=== PATIENT | female | born 1970 | race Caucasian/White ===

== ENCOUNTER → 2016-09-30 | Outpatient (REF) | payer OTHER | LOC: M LAB REF 12:19 | PROVIDERS: ATTEND Surgery | DX: L72.12 Trichodermal cyst (principal) ==

== ENCOUNTER → 2017-05-06 | Outpatient (REF) | payer OTHER ==
[2017-05-06 19:19] LABS: VITAMIN B12 LEVEL 634 PG/ML (247-911)
== END ==
LOC: M LAB REF 16:33
PROVIDERS: ATTEND Internal Medicine
DX: N92.4 Excessive bleeding in the premenopausal period (principal)

== ENCOUNTER → 2017-06-23 | Outpatient (REF) | payer OTHER ==
[2017-06-23 14:57] LABS: INFLUENZA A AMPLIFICATION POSITIVE (NEGATIVE); INFLUENZA B AMPLIFICATION NEGATIVE (NEGATIVE)
== END ==
LOC: M LAB REF 13:25
DX: R05 Cough (principal); R51 Headache

== ENCOUNTER → 2018-01-23 | Outpatient (REF) | payer OTHER ==
[2018-01-23 19:51] LABS: BASO # 0.1 10^3/uL (0.0-0.2); BASO % 1.4 % (0.0-1.0); EOS # 0.3 10^3/uL (0.0-0.50); EOS % 4.3 % (0.0-3.0); HEMATOCRIT 41.8 % (36.0-47.0); HEMOGLOBIN 13.6 g/dl (12.0-15.5); IMMATURE GRANULOCYTE % 0.3 % (0-3.0); LYMPH # 1.4 10^3/uL (1.5-4.5); LYMPH % 20.8 % (24.0-44.0); MEAN CORPUSCULAR HGB CONC 32.5 g/dl (32.0-36.5); MEAN CORPUSCULAR VOLUME 89.1 fl (80.0-96.0); MONO # 0.4 10^3/uL (0.0-0.8); NEUTROPHILS # 4.4 10^3/uL (1.8-7.7); NEUTROPHILS % 67.2 % (36.0-66.0); PLATELET COUNT, AUTOMATED 248 10^3/uL (150-450); RED BLOOD COUNT 4.69 10^6/uL (4.00-5.40); RED CELL DISTRIBUTION WIDTH 14.6 % (11.5-14.5); WHITE BLOOD COUNT 6.5 10^3/uL (4.0-10.0)
[2018-01-23 20:21] LABS: HEPATITIS B SURFACE ANTIBODY NEGATIVE (POSITIVE)
[2018-01-23 20:27] LABS: TOTAL 25(OH) VITAMIN D 73.1 NG/ML (30.0-100.0)
[2018-01-23 21:15] LABS: ERYTHROCYTE SEDIMENTATION RATE 5 mm/hr (0-20)
[2018-01-23 23:51] LABS: ALBUMIN 4.3 GM/DL (3.2-5.2); ALKALINE PHOSPHATASE 63 U/L (45-117); ALT/SGPT 29 U/L (12-78); AST/SGOT 29 U/L (7-37); BILIRUBIN,TOTAL 0.5 MG/DL (0.2-1.0); BLOOD UREA NITROGEN 15 MG/DL (7-18); C REACTIVE PROTEIN QUANTITATIV < 0.30 MG/DL (0.00-0.30); CALCIUM LEVEL 9.3 MG/DL (8.5-10.1); CARBON DIOXIDE LEVEL 28 MEQ/L (21-32); CHLORIDE LEVEL 106 MEQ/L (98-107); GLOMERULAR FILTRATION RATE > 60.0 (>58); GLUCOSE, FASTING 87 MG/DL (70-100); POTASSIUM SERUM 4.5 MEQ/L (3.5-5.1); RHEUMATOID FACTOR QUANT < 10.0 IU/ML (<15.0); SODIUM LEVEL 140 MEQ/L (136-145); TOTAL PROTEIN 7.4 GM/DL (6.4-8.2)
[2018-01-24 00:16] LABS: ANION GAP 6 MEQ/L (8-16)
[2018-01-24 00:17] LABS: ALBUMIN/GLOBULIN RATIO 1.39 (1.00-1.93)
[2018-01-24 13:00] LABS: HEPATITIS B SURFACE ANTIGEN NEGATIVE (NEGATIVE)
[2018-01-24 14:27] LABS: HEPATITIS C VIRUS ABY INDEX 0.1 INDEX (<0.8)
[2018-01-26 00:08] LABS: CYCLIC CITRULLINATED PEPTIDE 93 units (0-19)
[2018-01-26 00:08] LABS: ANA (HEP2) Negative (.); HEPATITIS B CORE ANTIBODY IGG Negative (Negative); QUANTIFERON GOLD TB Negative (Negative); RNP ANTIBODY < 0.2 AI (0.0-0.9); SMITHS ANTIBODY < 0.2 AI (0.0-0.9); TB Test (QFT) Antigen 0.05 IU/mL (.); TB Test (QFT) Antigen Minus Ni 0.01 IU/mL (.); TB Test (QFT) Mitogen 6.94 IU/mL (.); TB Test (QFT) Nil 0.04 IU/mL (.)
== END ==
LOC: M SFHCLERA 15:43
DX: M06.9 Rheumatoid arthritis, unspecified (principal)

== ENCOUNTER → 2018-01-23 | Outpatient (CLI) | payer OTHER | LOC: M LRY 16:15 | DX: M06.9 Rheumatoid arthritis, unspecified (principal) | CPT/HCPCS: 73110 ==

== ENCOUNTER → 2018-12-07 | Outpatient (REF) | payer OTHER ==
[2018-12-07 12:50] LABS: C REACTIVE PROTEIN QUANTITATIV < 0.30 MG/DL (0.00-0.30); RHEUMATOID FACTOR QUANT < 10.0 IU/ML (<15.0)
== END ==
LOC: M LABDRAW1 08:33
PROVIDERS: ATTEND Internal Medicine Rheumatology
DX: M06.9 Rheumatoid arthritis, unspecified (principal)

== ENCOUNTER 2019-03-12 11:05 | Emergency (ER) | payer OTHER ==
[~2019-03-12] VITALS: Ht 160 cm; Wt 63.6 kg
[2019-03-12] MEDS ORDERED: XYZASOL2 PO (12:04)
[2019-03-12] MEDS ORDERED: LEVO137T2 PO (12:04)
[2019-03-12] MEDS ORDERED: [UNRECOGNIZED DRUG - OTHER] PO (12:04)
[2019-03-12] MEDS ORDERED: HYDR200T3 PO (12:04)
[2019-03-12] MEDS ORDERED: MONT10TA2 PO (12:04)
[2019-03-12] MEDS ORDERED: KETOROLAC 30 MG/ML VIAL (J1885) IV ONE (12:45)
[2019-03-12] MEDS ORDERED: NS 1,000 ML IV ONE (12:45)
[2019-03-12 13:12] LABS: BASO # 0.1 10^3/uL (0.0-0.2); BASO % 0.9 % (0.0-1.0); EOS # 0.3 10^3/uL (0.0-0.5); EOS % 2.2 % (0.0-3.0); HEMATOCRIT 39.4 % (36.0-47.0); HEMOGLOBIN 13.2 g/dl (12.0-15.5); LYMPH # 1.4 10^3/uL (1.5-5.0); LYMPH % 12.4 % (24.0-44.0); MEAN CORPUSCULAR HEMOGLOBIN 29.9 pg (27.0-33.0); MEAN CORPUSCULAR HGB CONC 33.5 g/dl (32.0-36.5); MEAN CORPUSCULAR VOLUME 89.1 fl (80.0-96.0); MONO # 0.5 10^3/uL (0.0-0.8); MONO % 4.8 % (0.0-5.0); NEUTROPHILS # 8.8 10^3/uL (1.5-8.5); NEUTROPHILS % 79.3 % (36.0-66.0); PLATELET COUNT, AUTOMATED 225 10^3/uL (150-450); RED BLOOD COUNT 4.42 10^6/uL (4.00-5.40); WHITE BLOOD COUNT 11.1 10^3/uL (4.0-10.0)
[2019-03-12 13:44] LABS: BLOOD UREA NITROGEN 15 MG/DL (7-18); CALCIUM LEVEL 9.5 MG/DL (8.5-10.1); CARBON DIOXIDE LEVEL 27 MEQ/L (21-32); CHLORIDE LEVEL 109 MEQ/L (98-107); CREATININE FOR GFR 0.97 MG/DL (0.55-1.30); GLOMERULAR FILTRATION RATE > 60.0 (>58); GLUCOSE, FASTING 80 MG/DL (70-100); POTASSIUM SERUM 4.6 MEQ/L (3.5-5.1); SODIUM LEVEL 140 MEQ/L (136-145)
[2019-03-12 13:45] LABS: ALBUMIN 4.1 GM/DL (3.2-5.2); ALT/SGPT 26 U/L (12-78); AMYLASE 110 U/L (25-115); BILIRUBIN,TOTAL 0.6 MG/DL (0.2-1.0); LIPASE 443 U/L (73-393); TOTAL PROTEIN 7.2 GM/DL (6.4-8.2)
--- NOTE | 2019-03-12 14:52 | REP ---
Clinical: Right flank pain and hematuria. Technique: Axial noncontrast images from the lung bases to the pubic symphysis with coronal and sagittal re-formations. Comparison: 07/06/2013 Findings: Stable upper pole right renal cyst again noted. Urinary tract system including bilateral kidneys/ureters and bladder otherwise unremarkable. No perinephric stranding, hydroureteronephrosis, or nephroureterolithiasis identified. Liver, spleen, pancreas, gallbladder, and bilateral adrenal glands are normal for noncontrast evaluation. The enteric system is without obstruction or acute inflammatory process although moderate fecal stasis and possible constipation is suggested. Normal appendix identified in the right lower quadrant. Pelvis demonstrates normal bladder and age-appropriate uterus/adnexa. No ascites. No free air. No obvious adenopathy. Abdominal aorta without aneurysm. Musculoskeletal structures intact. Lung bases are clear. Impression: 1. Stable right renal cyst. No further urinary tract pathology appreciated. 2. Moderate fecal stasis and constipation suggested. Electronically Signed by Ky Bess MD 03/12/2019 02:43 P
[2019-03-12 15:39] VITALS: BP 131/74
== END 2019-03-12 15:40 | disposition home or self-care (01) ==
LOC: M ED 11:05
DX: K59.00 Constipation, unspecified (principal); E86.0 Dehydration; R06.9 Unspecified abnormalities of breathing; M06.9 Rheumatoid arthritis, unspecified; Z88.1 Allergy status to other antibiotic agents; Z79.890 Hormone replacement therapy; Z79.899 Other long term (current) drug therapy
CPT/HCPCS: 74176; 80053; 81001; 82150; 83690; 84702; 85025; 96374; 99284; J1885

== ENCOUNTER → 2019-03-20 | Outpatient (REF) | payer OTHER ==
[~2019-03-20] MED LIST: HYDR200T3 PO; LEVO137T2 PO; MONT10TA2 PO; XYZASOL2 PO; [UNRECOGNIZED DRUG - OTHER] PO
== END ==
LOC: M LAB REF 08:54
PROVIDERS: ATTEND Radiology Diagnostic Radiology
DX: N60.82 Other benign mammary dysplasias of left breast (principal)

== ENCOUNTER → 2019-05-18 | Outpatient (CLI) | payer OTHER ==
[2019-05-18 17:34] LABS: FREE T4 1.26 NG/DL (0.76-1.46); THYROID STIMULATING HORMONE 1.22 uIU/ML (0.358-3.740)
[2019-05-18 17:37] LABS: PROLACTIN 4.5 NG/ML
== END ==
LOC: M PLALAB 14:26
PROVIDERS: ATTEND Advanced Practice Midwife
DX: O92.6 Galactorrhea (principal); Z3A.00 Weeks of gestation of pregnancy not specified

== ENCOUNTER → 2019-06-19 | Outpatient (REF) | payer OTHER | LOC: M LAB REF 12:58 | PROVIDERS: ATTEND Radiology Diagnostic Radiology | DX: N60.12 Diffuse cystic mastopathy of left breast (principal); N63.22 Unspecified lump in the left breast, upper inner quadrant; N63.24 Unspecified lump in the left breast, lower inner quadrant ==

== ENCOUNTER → 2019-07-19 | Outpatient (CLI) | payer OTHER ==
[~2019-07-19] MED LIST changes: +LIDOCAINE 1% MDV 20ML VIAL As Ordered ONE; -MONT10TA2 PO; +MONT10TA4 PO; +PROHANCE 279.3MG/ML 15ML VIAL (A9576) As Ordered ONE
[2019-07-19 13:05] VITALS: BP 144/93
--- NOTE | 2019-07-19 16:26 | REP ---
Digital diagnostic unilateral left breast mammography with CAD: Two views. History: Marker clip placement views. The patient is status post MR guided left breast biopsy. Comparison mammography June 19, 2019. Findings: The two previously placed medial needle biopsy marker clips are again noted unchanged. Post biopsy changes with intracavitary air are seen at the sampling site in the medial left breast anterior third. Unfortunately, the HydroMark clip inserted at the time of the MR guided biopsy is not visible. There was some bleeding just after the biopsy needle was removed and it must have been extruded. Perhaps it failed to deploy properly. In any event, it is not present. Impression: The marker clip which was deployed at the time of the biopsy is not visible mammographically. Tissue sampling changes are seen medially in the left mid breast anterior third. Electronically Signed by Feng Babin MD 07/20/2019 06:29 P
--- NOTE | 2019-07-19 18:20 | REP ---
MRI GUIDED LEFT BREAST BIOPSY The procedure was performed under the personal supervision of Dr. Babin. The patient has a history of a somewhat nodular linear branching area of enhancement in the lower inner left breast seen on a previous MRI from [facility] performed on 05/30/2019. The risks and benefits of the procedure were explained to the patient and informed consent was obtained. The left breast lesion was localized using MRI guidance. The skin was prepped and draped in a sterile fashion. 1% lidocaine was used as a local anesthetic. A 10-gauge suction assisted Mammotome needle was inserted and four core biopsy samples were obtained. A marker clip was placed at the biopsy site. The patient tolerated the procedure well and there were no immediate complications. After the appropriate amount of monitored convalescence the patient was discharged from the department. Electronically Signed by CHITRA Reilly 07/19/2019 04:47 P Electronically Signed by Feng Babin MD 07/19/2019 06:12 P
== END ==
LOC: M IRPRO 09:25
PROVIDERS: ATTEND Surgery
DX: N64.52 Nipple discharge (principal); R92.8 Other abnormal and inconclusive findings on diagnostic imaging of breast
CPT/HCPCS: 19085; 77065; 88305; A9576

== ENCOUNTER → 2019-07-24 | Outpatient (CLI) | payer OTHER ==
[~2019-07-24] MED LIST changes: -PROHANCE 279.3MG/ML 15ML VIAL (A9576) As Ordered ONE; +SODIUM BICARBONATE 8.4% INJ 50MEQ 50 ML VIAL As Ordered ONE
[2019-07-24 16:05] VITALS: BP 133/84
--- NOTE | 2019-07-24 17:06 | REP ---
Digital diagnostic unilateral left breast mammography with CAD: History: Marker clip placement views. The patient is status post HydroMARK clip placement at the recent MR guided needle biopsy site in the left breast, medial aspect. Comparison mammography is from July 19, 2019. Comparison is made with today's sonography. Findings: Breast parenchyma is heterogeneously dense. There are two previously placed needle biopsy marker clips in the posterior third of the medial left breast, unchanged. At the site of the MR guided needle biopsy sampling, just medial to the plane of the nipple, in the anterior third of the left breast, there is a HydroMARK clip in good position. There is no visible hematoma. Impression: Sonographically placed HydroMARK clip is felt to be in good position. Electronically Signed by Feng Babin MD 07/24/2019 05:44 P
--- NOTE | 2019-07-24 17:56 | REP ---
Ultrasound-guided left breast microclip placement The procedure was performed by CHITRA Gleason, under the direct supervision of Dr. Babin. The patient has a history of a MRI guided biopsy dated 07/19/2019, in which the microclip did not deploy. The risks and benefits of the procedure were explained to the patient and informed consent was obtained both verbally and written. Directly prior to the start of the procedure, a formal timeout was completed in the procedure room. The left breast hematoma from the previous MRI guided biopsy was localized using ultrasound guidance. The skin was prepped and draped in a sterile fashion. 6 mL of buffered lidocaine was used as a local anesthetic. Using ultrasound guidance a HydroMARK marker clip was placed superficial to the hematoma from the previous MRI guided biopsy. The patient tolerated the procedure well and there were no immediate complications. After the appropriate monitored convalescence the patient was discharged from the department. Reviewed by CHITRA Carlisle 07/24/2019 04:35 P Electronically Signed by Feng Babin MD 07/24/2019 05:45 P
== END ==
LOC: M IRPRO 14:49
PROVIDERS: ATTEND Surgery
DX: D36.9 Benign neoplasm, unspecified site (principal)

== ENCOUNTER 2019-08-01 05:48 | Day surgery (SDC) | payer OTHER ==
[~2019-08-01] VITALS: Ht 160 cm; Wt 66.2 kg
[~2019-08-01 05:48] MED LIST changes: -LIDOCAINE 1% MDV 20ML VIAL As Ordered ONE; -SODIUM BICARBONATE 8.4% INJ 50MEQ 50 ML VIAL As Ordered ONE
[2019-08-01] MEDS ORDERED: ceFAZolin SOD 2 GM in IV 1 EA IV ONE (06:00)
[2019-08-01] MEDS ORDERED: HEPARIN SOD (PORCINE) 5000 UNITS/ML VIAL (J1644 PER 1000UNITS) SQ ONE (06:00)
[2019-08-01] MEDS ORDERED: LIDOCAINE 1% SDV INJ 30 ML VIAL As Ordered ONE (06:50)
[2019-08-01] MEDS ORDERED: BUPIVACAINE HCL 0.25% 30 ML VIAL As Ordered ONE (06:50)
[2019-08-01] MEDS ORDERED: LR 1,000 ML IV ONE (07:15)
[2019-08-01] MEDS ORDERED: MIDAZOLAM INJ 2 MG/2 ML VIAL (J2250) As Ordered ONE (07:52)
[2019-08-01] MEDS ORDERED: dexameTHASONE 4 MG/ML 1ML VIAL (J1100) As Ordered ONE (07:52)
[2019-08-01] MEDS ORDERED: fentaNYL 100 MCG/2 ML INJECTION (J3010) As Ordered ONE (07:52)
[2019-08-01] MEDS ORDERED: propofoL 200 MG/20 ML VIAL As Ordered ONE (07:52)
[2019-08-01] MEDS ORDERED: LIDOCAINE 2% INJ 100 MG/5 ML SDV (FOR ANES.) As Ordered ONE (07:52)
[2019-08-01] MEDS ORDERED: PHENYLephrine HCL 500 MCG/5 ML (100MCG/ML) SYRINGE (J2370) As Ordered ONE (08:00)
[2019-08-01] MEDS ORDERED: ACETAMINOPHEN 1000MG 100ML IV BTL (OFIRMEV) (J0131 PER 10MG) As Ordered ONE (08:34)
[2019-08-01] MEDS ORDERED: ONDANSETRON 4MG/2ML VIAL (J2405) As Ordered ONE (08:37)
[2019-08-01] MEDS ORDERED: KETOROLAC 60 MG/2 ML VIAL (J1885) As Ordered ONE (08:37)
[2019-08-01] MEDS ORDERED: ULTR50TA8 PO (09:56)
[2019-08-01] MEDS ORDERED: LR 1,000 ML IV SCH (10:00)
[2019-08-01] MEDS ORDERED: ONDANSETRON 4MG/2ML VIAL (J2405) IV PRN (10:00)
[2019-08-01] MEDS ORDERED: fentaNYL 100 MCG/2 ML INJECTION (J3010) IV PRN (10:00)
[2019-08-01] MEDS ORDERED: HYDROMORPHONE HCL 0.5 MG/ 0.5 ML SYRINGE (J1170 PER 1) IV PRN (10:00)
[2019-08-01] MEDS ORDERED: oxyCODONE 5MG TAB PO PRN (10:00)
--- NOTE | 2019-08-01 10:33 | REP ---
FOCUSED LEFT BREAST SONOGRAPHY: HISTORY: Sonographic guidance. Wire localization. FINDINGS: Sonographic guidance is provided to Dr. Lee who performed sonographic needle wire localization procedure. Electronically Signed by Feng Babin MD 08/01/2019 12:16 P
[2019-08-01 11:25] VITALS: BP 122/77
--- NOTE | 2019-08-01 15:15 | REP ---
SPECIMEN RADIOGRAPH: Specimen radiograph performed following needle localization and excisional biopsy/lumpectomy of a left retroareolar abnormality, which was biopsied using MRI guidance 07/19/2019. A marking clip is seen in a small piece of tissue. There is a large piece of tissue containing the localizing wire. Another smaller piece of tissue is also seen adjacent to the larger specimen. Electronically Signed by Matthew Saldaña MD 08/01/2019 03:20 P
--- NOTE | 2019-08-02 11:31 | ROOPDOC ---
[facility] Report Of Operation Report of Operation DATE OF PROCEDURE: 08/01/19 PREPROCEDURE DIAGNOSES: Left intraductal papilloma and left nipple discharge POSTPROCEDURE DIAGNOSES: Left intraductal papilloma and left nipple discharge PROCEDURE: Left breast excisional biopsy SURGEON: Derek Orourke COCKTAIL SERVER: ANESTHESIA: General ESTIMATED BLOOD LOSS: Approximately 5 mL. COMPLICATIONS: None. REMARKS: Wire is seen centrally in the specimen. Hydromark clip was previously removed out of specimen and placed next to it on the grid. DESCRIPTION OF PROCEDURE: INDICATIONS: Ms. Graham is a 49-year-old woman who presented to the clinic with persistent left nipple discharge. She was evaluated with MRI and found to have suspicious lesion in the retroareolar region. She and her went MRI guided biopsy which returned as intraductal papilloma. Unfortunately marking clip did not deploy during MRI guided biopsy. A new clip had to be placed with the ultrasound guidan ce aiming at the biopsy site hematoma. Patient was explained that intraductal papilloma is a benign pathology however occasionally it can be associated with carcinoma. She opted for excisional biopsy of the left breast. She was medically cleared for surgery by her primary care doctor. Risks and possible complications of surgical procedure including bleeding, infection and injury to surrounding structures were explained to the patient and she wished to proceed. Consent was signed. My initials were placed on the operative site. Subcutaneous injection of 5000 units of heparin was done in Preop. DETAILS: Patient was taken to the operating room and placed on the operating room table. A sign in was called stating patients name, date of and the procedure to be done. Preoperative antibiotics were infused. Smooth induction of general anesthesia was done. Patients hands were extended on arm rests. Care was taken not to over extend the arms. Procedure was started with left breast intraop wire localization. Appropriate time out was done and patients name, date of , and the procedure to be done were confirmed. Left breast was cleaned by me. Intraoperative ultrasound was used again to confirm location of the Hydromark clip and the hematoma. Location of both was marked on the skin as well. 21 G Kopans Breast Lesion Localization Needle was used to place 25 cm wire through the lesion. The wire was placed through the hematoma and next to the clip. The end of the wire was passed a centimeter deep. The images were captured confirming adequate placement of the localizing wire. Salmon Gillnet Vessel Operator assisted with the wire placement. Next, patients left breast was prepped and draped in the usual fashion. Care was taken not to displace the wire. Appropriate time out was done again prior second part of the procedure. Patients name, date of , and the procedure to be done were confirmed. Next, local anesthetic using 1% lidocaine and 0.25 % Marcaine 50/50 mix was injected at the site of planned periareolar incision. The incision was made with the scalpel. Subcutaneous skin flaps were raised and the guide wire was carefully pulled into the wound. Dissection was carries along the wire until the previously marked on the skin area of target lesion location was encountered. At this point, wider excision of the tissue surrounding the wire was done. The Hydromark clip was identified in the tissue with intraoperative hockey stick ultrasound probe. Since it was superficially placed, Hydromark clip was noted during dissection. The gel cylinder containing clip was removed to prevent losing it in tissues during manipulation. Silk stitch was placed at the site where clip was. The end of the wire was identified with palpation. The excisional biopsy specimen was carefully removed from the breast keeping its proper orientation and moved to the back table where margins were marked with the surgical inking kit following the standard colors recommendations. Specimen was then placed on the grid and placed in [employer] Specimen Imaging System. The image revealed the wire centrally in the specimen. Hydromark was previously removed out of the specimen and placed next to it on the grid. The specimen was labeled with patients name and left excisional biopsy and sent to pathology. Next, wound was irrigated thoroughly and adequate hemostasis was assured. Additional local anesthetic was injected into surrounding tissues. space was approximated with 3-0 Vicryl. The dermis was closed with 3-0 Monocryl and skin was closed with 4-0 Monocryl. Surgical glue was placed over the incision. Patient emerged from the anesthesia without any problems. Fluffs were placed over the operative site and patients chest was wrapped snuggly in the JENNIFER wrap. Sponge and instrument counts were done and were correct. Patient tolerated procedure well and was taken to recovery unit in stable condition. DEREK OROURKE DO Aug 01, 2019 21:40
== END 2019-08-01 11:27 | disposition home or self-care (01) ==
LOC: M SDC 05:48
PROVIDERS: ATTEND Surgery
DX: D24.2 Benign neoplasm of left breast (principal); N64.52 Nipple discharge; I49.3 Ventricular premature depolarization; E03.9 Hypothyroidism, unspecified; M06.9 Rheumatoid arthritis, unspecified; J30.89 Other allergic rhinitis; Z87.891 Personal history of nicotine dependence; Z88.1 Allergy status to other antibiotic agents; Z79.899 Other long term (current) drug therapy
CPT/HCPCS: 19101; 36415; 76098; 76942; 81025; 86850; 86900; 86901; 88305; J0131; J0690; J1100; J1644; J1885; J2250; J2370; J2405; J3010

== ENCOUNTER → 2020-03-03 | Outpatient (CLI) | payer OTHER ==
[~2020-03-03] MED LIST changes: +ULTR50TA8 PO
--- NOTE | 2020-03-03 13:39 | REPMRS ---
Patient History The patient states she had a clinical breast exam in May 2019. Patient is postmenopausal. Family history of breast cancer at age 43, uterine cancer at age 60, and breast cancer at age 68 in mother. Benign radio exam breast specimen of the left breast, August 01, 2019. MRI guided breast biopsy of the left breast, July 19, 2019. 3D TOMOSYNTHESIS WAS PERFORMED. [facility] lifetime risk for breast cancer is 18.8%. CLAIRE Loza Digital Woman Screen Mammo: March 03, 2020 - Exam #: [id number] Bilateral CC and MLO view(s) were taken. Technologist: Luz Bueno, Technologist Prior study comparison: July 24, 2019, left breast digital mammo diagnostic unilateral, performed at [facility]. July 19, 2019, left breast digital mammo diagnostic unilateral, performed at [facility]. FINDINGS: The breast tissue is extremely dense which could obscure a lesion on mammography. There has been no change in the appearance of the mammogram from the prior studies. There is a moderate amount of residual fibroglandular tissue which is fairly symmetric. There is no interval development of dominant mass, areas of architectural distortion, or clustered microcalcification typical of malignancy. Assessment: BI-RADS/ACR category 1 mammogram. Negative Mammogram. Recommendation Routine screening mammogram in 1 year (for women over age 40). This mammogram was interpreted with the aid of an FDA-approved computer-aided dectection system. Electronically Signed By: Matthew Saldaña MD 03/03/20 [id number]
== END ==
LOC: M WHC 12:41
PROVIDERS: ATTEND Surgery
DX: Z12.31 Encounter for screening mammogram for malignant neoplasm of breast (principal); Z80.3 Family history of malignant neoplasm of breast; Z86.018 Personal history of other benign neoplasm

== ENCOUNTER → 2020-03-17 | Outpatient (CLI) | payer OTHER ==
--- NOTE | 2020-03-17 16:35 | REP ---
INDICATION: R92.2 DENSE BREAST/Z91.89 HIGH RISK FOR BREAST CA. COMPARISON: Ultrasound 03/01/2019 [facility] radiology imaging. The TECHNIQUE: Real-time sonographic evaluation of bilateral breasts performed. FINDINGS: No discrete cystic or solid nodule is seen in the right breast. To morphologically normal appearing lymph nodes are seen in the right axilla measuring 9 x 6 x 6 mm and 13 x 8 x 6 mm. In the left breast at 3 o'clock position, approximately 4 cm from the nipple, is an oval hypoechoic nodular structure measuring 6 x 3 x 3 mm. In the left axilla there appear to be 2 morphologically normal lymph nodes which are not enlarged measuring 9 x 5 x 3 mm and 6 x 5 x 3 mm. IMPRESSION: BIRADS/ACR category 4 suspicious. In the left breast at 3 o'clock approximately 4 cm from the nipple is an oval hypoechoic nodular structure 6 x 3 x 3 mm. Recommend ultrasound-guided biopsy. RECOMMENDATION: Recommend ultrasound-guided biopsy of nodular structure 3 o'clock left breast. <Electronically signed by Matthew Saldaña > 03/17/20 [id number]
== END ==
LOC: M WHC 12:22
PROVIDERS: ATTEND Surgery
DX: R92.2 Inconclusive mammogram (principal); Z91.89 Other specified personal risk factors, not elsewhere classified

== ENCOUNTER → 2020-05-01 | Outpatient (CLI) | payer SELFPAY ==
[~2020-05-01] MED LIST changes: -MONT10TA4 PO; +MONT5TAB2 PO
== END ==
LOC: M LABSMTC 09:55
PROVIDERS: ATTEND Pediatrics
DX: Z20.828 Contact with and (suspected) exposure to other viral communicable diseases (principal)

== ENCOUNTER → 2020-08-06 | Outpatient (REF) | payer OTHER ==
[~2020-08-06] MED LIST changes: +MONT10TA10 PO; -MONT5TAB2 PO
[2020-08-06 13:10] LABS: C REACTIVE PROTEIN QUANTITATIV < 0.30 MG/DL (0.00-0.30); RHEUMATOID FACTOR QUANT 11.4 IU/ML (<15.0)
== END ==
LOC: M LAB REF 12:19
PROVIDERS: ATTEND Internal Medicine
DX: M06.9 Rheumatoid arthritis, unspecified (principal)

== ENCOUNTER → 2020-09-04 | Outpatient (REF) | payer OTHER ==
[2020-09-04 18:36] LABS: C REACTIVE PROTEIN QUANTITATIV < 0.30 MG/DL (0.00-0.30); HEPATITIS B SURFACE ANTIGEN NEGATIVE (NEGATIVE); IMMUNOGLOBULIN G 900 MG/DL (681-1648); IMMUNOGLOBULIN M 96.3 MG/DL (40-230); IRON (FE) 107 UG/DL (50-170); MAGNESIUM LEVEL 2.1 MG/DL (1.8-2.4); TOTAL 25(OH) VITAMIN D 34.3 NG/ML (30.0-100.0); TOTAL PROTEIN 7.9 GM/DL (6.4-8.2); VITAMIN B12 LEVEL 1409 PG/ML (247-911)
[2020-09-04 18:37] LABS: HEPATITIS B SURFACE ANTIBODY NEGATIVE (POSITIVE)
[2020-09-04 18:42] LABS: HEPATITIS C VIRUS ABY INDEX 3.7 INDEX (<0.8)
== END ==
LOC: M SFHCRHEU 15:06
PROVIDERS: ATTEND Internal Medicine
DX: M05.9 Rheumatoid arthritis with rheumatoid factor, unspecified (principal); R53.82 Chronic fatigue, unspecified; Z79.899 Other long term (current) drug therapy; Z11.59 Encounter for screening for other viral diseases
CPT/HCPCS: 82306; 82607; 82784; 82955; 83540; 83735; 84165; 85652; 86140; 86704; 86706; 86803; 87340; 87521; G0480

== ENCOUNTER → 2020-09-10 | Outpatient (CLI) | payer OTHER ==
--- NOTE | 2020-09-10 13:44 | REP ---
INDICATION: RHEUMATOID ARTHRITIS COMPARISON: 02/23/2019. TECHNIQUE: Four views bilateral wrists. FINDINGS: There is no evidence of acute fracture, dislocation, or intrinsic bone disease.Joint spaces are normal. IMPRESSION: Negative bilateral wrist series. <Electronically signed by Matthew Saldaña > 09/10/20 [id number]
--- NOTE | 2020-09-10 13:48 | REP ---
INDICATION: RHEUMATOID ARTHRITIS. COMPARISON: 02/23/2019 TECHNIQUE: Four views of each hand FINDINGS: Right hand: Once again, there is somewhat asymmetric intra digital joint space narrowing slightly increased from the prior exam. Tiny marginal osteophytes are again seen involving the DIP joints with larger marginal osteophytes involving the PIP joints status quo. Mild periarticular osteopenia may be developing. There are no barry marginal erosions. There is no acute fracture, dislocation, or subluxation. Left hand: Asymmetric intra digital joint space narrowing is again noted and has worsened somewhat compared to the prior exam. There has been no significant interim development of marginal osteophytosis. There are no marginal erosions. Mild periarticular osteopenia may be developing. There is no acute fracture, dislocation, or subluxation. IMPRESSION: Chronic changes as described above. <Electronically signed by Jaswinder Garvey > 09/10/20 [id number]
--- NOTE | 2020-09-10 13:52 | REP ---
INDICATION: RHEUMATOID ARTHRITIS. COMPARISON: Only the right ankle of 12/07/2018 FINDINGS: No acute fracture or destructive osseous lesion. The mortise is intact. IMPRESSION: Within normal limits bilateral <Electronically signed by Jaswinder Garvey > 09/10/20 [id number]
--- NOTE | 2020-09-10 14:21 | REP ---
INDICATION: RHEUMATOID ARTHRITIS. COMPARISON: None. TECHNIQUE: Four views of each foot FINDINGS: The joint spaces are symmetric and relatively well maintained. There is no evidence of acute fracture or destructive osseous lesion. There are no marginal erosions. There is no prominent marginal osteophytosis. There is no barry periarticular osteopenia. IMPRESSION: Within normal limits bilateral <Electronically signed by Jaswinder Garvey > 09/10/20 [id number]
== END ==
LOC: M WUC 13:01
PROVIDERS: ATTEND Internal Medicine
DX: M05.9 Rheumatoid arthritis with rheumatoid factor, unspecified (principal)

== ENCOUNTER → 2020-10-09 | Outpatient (CLI) | payer OTHER ==
[~2020-10-09] MED LIST changes: +PROHANCE 279.3MG/ML 15ML VIAL As Ordered ONE
--- NOTE | 2020-10-10 08:08 | REP ---
INDICATION: FAM HX OF BREAST CA. COMPARISON: Comparison mammography March 03, 2020. Comparison MRI study 30 May 2019. Patient is status post excisional biopsy left breast. TECHNIQUE: Three Mercedes MRI imaging was performed with a dedicated breast coil. Axial, coronal, and sagittal T1 and T2 weighted scans were obtained with and without fat saturation in the usual fashion. The study includes dynamically acquired post gadolinium-enhanced imaging with image subtraction. Maximum intensity projection and multi planar reformation imaging is included as well. This study is interpreted with the aid of AccuDraft, an FDA approved computer aided detection (CAD) software program, on a dedicated breast MRI workstation. The gadolinium enhancement dose is 12 mL of intravenous ProHance. FINDINGS: There is a mild to moderate amount of fibroglandular tissue bilaterally corresponding with the mammographic pattern. There is mild background parenchymal enhancement. There is no evidence of axillary lymphadenopathy or significant breast cystic change. High-resolution pre and post-contrast T1 and T2 weighted scans show no suspicious morphologic abnormality in either breast. Dynamically acquired sequential postcontrast images show no suspicious area of enhancement and washout kinetics in either breast to suggest malignancy. Subtraction images show no additional abnormality. There are multiple micrometallic artifacts and some postoperative scarring in the medial aspect of the left breast from previous biopsy and previous marker clip placement. The previously noted area of ductal pattern enhancement is no longer apparent consistent with resection. No suspicious abnormality. IMPRESSION: BI-RADS category 2 benign bilateral breast MRI findings. <Electronically signed by Jacky Babin > 10/10/20 [id number]
== END ==
LOC: M RAD 14:58
PROVIDERS: ATTEND Internal Medicine
DX: Z15.01 Genetic susceptibility to malignant neoplasm of breast (principal); Z87.42 Personal history of other diseases of the female genital tract

== ENCOUNTER → 2021-02-10 | Outpatient (REF) | payer OTHER ==
[~2021-02-10] MED LIST changes: -PROHANCE 279.3MG/ML 15ML VIAL As Ordered ONE
[2021-02-10 19:14] LABS: % LABILE ALKALINE PHOSPHATASE 34.7 %
== END ==
LOC: M LAB REF 17:02
PROVIDERS: ATTEND Internal Medicine
DX: R74.8 Abnormal levels of other serum enzymes (principal)

== ENCOUNTER → 2021-03-03 | Outpatient (CLI) | payer OTHER ==
--- NOTE | 2021-03-03 16:50 | REP ---
INDICATION: ELEVATED LFT'S-LABS FIRST COMPARISON: None. TECHNIQUE: Real time song scale ultrasound examination using curved array transducer. FINDINGS: Liver and pancreas are normal in contour, size, and echogenicity without focal hepatic or pancreatic lesions identified. The gallbladder is normal and without gallstones, wall thickening, or pericholecystic fluid. No biliary ductal dilatation is appreciated and the common bile duct measures 3.1 mm diameter. Right kidney is normal in reniform shape without hydronephrosis and measures 10.7 x 5.6 x 4.5 cm with 2.3 cm upper pole cyst. No ascites in the visualized right upper quadrant. IMPRESSION: Simple right renal cyst. Otherwise normal right upper quadrant/liver ultrasound. <Electronically signed by Ky Bess > 03/03/21 [id number]
== END ==
LOC: M RAD 07:13
PROVIDERS: ATTEND Internal Medicine
DX: R74.01 Elevation of levels of liver transaminase levels (principal)

== ENCOUNTER → 2021-03-03 | Outpatient (CLI) | payer OTHER ==
[2021-03-03 09:47] LABS: HEPATITIS C VIRUS ABY INDEX < 0.0 INDEX (<0.8); VITAMIN B12 LEVEL 1001 PG/ML (247-911)
== END ==
LOC: M LAB 07:18
PROVIDERS: ATTEND Internal Medicine
DX: Z11.59 Encounter for screening for other viral diseases (principal); M06.9 Rheumatoid arthritis, unspecified; R74.8 Abnormal levels of other serum enzymes
CPT/HCPCS: 36415; 82607; 86803; G0480

== ENCOUNTER → 2021-04-28 | Outpatient (CLI) | payer OTHER ==
[~2021-04-28] MED LIST changes: -MONT10TA10 PO; +MONT10TA97 PO
[2021-04-28 18:13] LABS: BASO # 0.1 10^3/uL (0.0-0.2); BASO % 1.3 % (0.0-1.0); EOS # 0.4 10^3/uL (0.0-0.5); EOS % 5.4 % (0.0-3.0); HEMATOCRIT 36.4 % (36.0-47.0); HEMOGLOBIN 12.4 g/dl (12.0-15.5); LYMPH # 1.7 10^3/uL (1.5-5.0); LYMPH % 25.4 % (24.0-44.0); MEAN CORPUSCULAR HEMOGLOBIN 30.2 pg (27.0-33.0); MEAN CORPUSCULAR HGB CONC 34.1 g/dl (32.0-36.5); MEAN CORPUSCULAR VOLUME 88.6 fl (80.0-96.0); MONO # 0.4 10^3/uL (0.0-0.8); MONO % 5.7 % (2.0-8.0); NEUTROPHILS # 4.2 10^3/uL (1.5-8.5); NEUTROPHILS % 61.9 % (36.0-66.0); PLATELET COUNT, AUTOMATED 223 10^3/uL (150-450); RED BLOOD COUNT 4.11 10^6/uL (4.00-5.40); WHITE BLOOD COUNT 6.7 10^3/uL (4.0-10.0)
[2021-04-28 18:39] LABS: ALBUMIN 3.8 GM/DL (3.2-5.2); BILIRUBIN,DIRECT 0.1 MG/DL (0.0-0.2); BILIRUBIN,TOTAL 0.4 MG/DL (0.2-1.0); C REACTIVE PROTEIN QUANTITATIV 0.3 MG/DL (0.00-0.30); CALCIUM LEVEL 8.7 MG/DL (8.5-10.1); CREATININE FOR GFR 1.08 MG/DL (0.55-1.30); GLOMERULAR FILTRATION RATE 56.9 (>51); POTASSIUM SERUM 4.2 MEQ/L (3.5-5.1); TOTAL PROTEIN 6.7 GM/DL (6.4-8.2)
[2021-04-28 18:56] LABS: ERYTHROCYTE SEDIMENTATION RATE 7 mm/hr (0-30)
== END ==
LOC: M LAB 17:45
PROVIDERS: ATTEND Internal Medicine
DX: M06.9 Rheumatoid arthritis, unspecified (principal); R74.8 Abnormal levels of other serum enzymes

== ENCOUNTER → 2021-07-27 | Outpatient (REF) | payer OTHER ==
[2021-07-27 12:39] LABS: BASO # 0.1 10^3/uL (0.0-0.2); EOS # 0.2 10^3/uL (0.0-0.5); HEMATOCRIT 41.5 % (36.0-47.0); HEMOGLOBIN 14.4 g/dl (12.0-15.5); LYMPH # 1.3 10^3/uL (1.5-5.0); LYMPH % 29.4 % (24.0-44.0); MEAN CORPUSCULAR HEMOGLOBIN 30.4 pg (27.0-33.0); MEAN CORPUSCULAR HGB CONC 34.7 g/dl (32.0-36.5); MEAN CORPUSCULAR VOLUME 87.7 fl (80.0-96.0); MONO # 0.3 10^3/uL (0.0-0.8); MONO % 6.6 % (2.0-8.0); NEUTROPHILS # 2.6 10^3/uL (1.5-8.5); NEUTROPHILS % 56.8 % (36.0-66.0); PLATELET COUNT, AUTOMATED 236 10^3/uL (150-450); RED BLOOD COUNT 4.73 10^6/uL (4.00-5.40); WHITE BLOOD COUNT 4.6 10^3/uL (4.0-10.0)
[2021-07-27 13:02] LABS: ALBUMIN 4.5 GM/DL (3.2-5.2); ALT/SGPT 79 U/L (12-78); BILIRUBIN,DIRECT 0.1 MG/DL (0.0-0.2); BILIRUBIN,TOTAL 0.4 MG/DL (0.2-1.0); BLOOD UREA NITROGEN 11 MG/DL (7-18); CALCIUM LEVEL 9.4 MG/DL (8.5-10.1); CARBON DIOXIDE LEVEL 30 MEQ/L (21-32); CHLORIDE LEVEL 110 MEQ/L (98-107); CREATININE FOR GFR 0.96 MG/DL (0.55-1.30); GLOMERULAR FILTRATION RATE > 60.0 (>51); GLUCOSE, FASTING 86 MG/DL (70-100); POTASSIUM SERUM 4.8 MEQ/L (3.5-5.1); SODIUM LEVEL 143 MEQ/L (136-145); TOTAL PROTEIN 7.4 GM/DL (6.4-8.2)
[2021-07-27 13:13] LABS: ERYTHROCYTE SEDIMENTATION RATE 3 mm/hr (0-30)
== END ==
LOC: M SFHCRHEU 11:14
PROVIDERS: ATTEND Internal Medicine
DX: M06.9 Rheumatoid arthritis, unspecified (principal)

== ENCOUNTER → 2021-10-20 | Outpatient (CLI) | payer OTHER ==
[2021-10-20 19:25] LABS: BASO # 0.1 10^3/uL (0.0-0.2); BASO % 1.2 % (0.0-1.0); EOS # 0.3 10^3/uL (0.0-0.5); EOS % 3.9 % (0.0-3.0); HEMATOCRIT 36.6 % (36.0-47.0); HEMOGLOBIN 12.8 g/dl (12.0-15.5); LYMPH # 1.7 10^3/uL (1.5-5.0); LYMPH % 24.7 % (24.0-44.0); MEAN CORPUSCULAR HEMOGLOBIN 31.4 pg (27.0-33.0); MEAN CORPUSCULAR VOLUME 89.7 fl (80.0-96.0); MONO # 0.5 10^3/uL (0.0-0.8); MONO % 6.8 % (2.0-8.0); NEUTROPHILS # 4.3 10^3/uL (1.5-8.5); NEUTROPHILS % 63.3 % (36.0-66.0); PLATELET COUNT, AUTOMATED 216 10^3/uL (150-450); RED BLOOD COUNT 4.08 10^6/uL (4.00-5.40); WHITE BLOOD COUNT 6.7 10^3/uL (4.0-10.0)
[2021-10-20 19:51] LABS: ALT/SGPT 41 U/L (12-78); BILIRUBIN,DIRECT < 0.1 MG/DL (0.0-0.2); BILIRUBIN,TOTAL 0.4 MG/DL (0.2-1.0); BLOOD UREA NITROGEN 13 MG/DL (7-18); CALCIUM LEVEL 8.6 MG/DL (8.5-10.1); CARBON DIOXIDE LEVEL 28 MEQ/L (21-32); CHLORIDE LEVEL 110 MEQ/L (98-107); CREATININE FOR GFR 0.89 MG/DL (0.55-1.30); GLOMERULAR FILTRATION RATE > 60.0 (>51); GLUCOSE, FASTING 93 MG/DL (70-100); POTASSIUM SERUM 4.2 MEQ/L (3.5-5.1); SODIUM LEVEL 142 MEQ/L (136-145); TOTAL PROTEIN 6.6 GM/DL (6.4-8.2)
[2021-10-20 20:08] LABS: ERYTHROCYTE SEDIMENTATION RATE 1 mm/hr (0-30)
== END ==
LOC: M WUC 15:27
PROVIDERS: ATTEND Internal Medicine
DX: M06.9 Rheumatoid arthritis, unspecified (principal)

== ENCOUNTER → 2021-11-02 | Outpatient (CLI) | payer OTHER | LOC: M WUC 10:40 | PROVIDERS: ATTEND Internal Medicine | DX: M06.9 Rheumatoid arthritis, unspecified (principal) ==

== ENCOUNTER → 2022-02-03 | Outpatient (CLI) | payer OTHER ==
[2022-02-03 10:04] LABS: BASO # 0.1 10^3/uL (0.0-0.2); BASO % 1.9 % (0.0-1.0); EOS # 0.2 10^3/uL (0.0-0.5); EOS % 5.6 % (0.0-3.0); HEMATOCRIT 39.5 % (36.0-47.0); HEMOGLOBIN 13.6 g/dl (12.0-15.5); LYMPH # 1.2 10^3/uL (1.5-5.0); LYMPH % 30.4 % (24.0-44.0); MEAN CORPUSCULAR HEMOGLOBIN 30.6 pg (27.0-33.0); MEAN CORPUSCULAR HGB CONC 34.4 g/dl (32.0-36.5); MONO # 0.3 10^3/uL (0.0-0.8); MONO % 8.5 % (2.0-8.0); NEUTROPHILS % 53.3 % (36.0-66.0); PLATELET COUNT, AUTOMATED 200 10^3/uL (150-450); RED BLOOD COUNT 4.44 10^6/uL (4.00-5.40); WHITE BLOOD COUNT 3.8 10^3/uL (4.0-10.0)
[2022-02-03 10:34] LABS: ERYTHROCYTE SEDIMENTATION RATE 2 mm/hr (0-30)
[2022-02-03 10:44] LABS: ALBUMIN 4.1 GM/DL (3.2-5.2); ALT/SGPT 30 U/L (12-78); BILIRUBIN,DIRECT 0.2 MG/DL (0.0-0.2); BILIRUBIN,TOTAL 0.5 MG/DL (0.2-1.0); BLOOD UREA NITROGEN 13 MG/DL (7-18); C REACTIVE PROTEIN QUANTITATIV 1.02 MG/DL (0.00-0.30); CALCIUM LEVEL 9.4 MG/DL (8.5-10.1); CARBON DIOXIDE LEVEL 30 MEQ/L (21-32); CHLORIDE LEVEL 108 MEQ/L (98-107); CREATININE FOR GFR 0.92 MG/DL (0.55-1.30); GLOMERULAR FILTRATION RATE > 60.0 (>51); GLUCOSE, FASTING 74 MG/DL (70-100); POTASSIUM SERUM 4.3 MEQ/L (3.5-5.1); SODIUM LEVEL 140 MEQ/L (136-145); TOTAL PROTEIN 6.7 GM/DL (6.4-8.2)
== END ==
LOC: M WUC 08:07
PROVIDERS: ATTEND Internal Medicine
DX: M06.9 Rheumatoid arthritis, unspecified (principal)

== ENCOUNTER → 2022-02-12 | Outpatient (REF) | payer OTHER | LOC: M LAB REF 12:44 | PROVIDERS: ATTEND Internal Medicine | DX: D51.9 Vitamin B12 deficiency anemia, unspecified (principal) ==

== ENCOUNTER → 2022-04-27 | Outpatient (CLI) | payer OTHER ==
[2022-04-27 13:14] LABS: BASO # 0.1 10^3/uL (0.0-0.2); BASO % 2.6 % (0.0-1.0); EOS # 0.3 10^3/uL (0.0-0.5); EOS % 6.1 % (0.0-3.0); HEMATOCRIT 41.6 % (36.0-47.0); LYMPH # 1.2 10^3/uL (1.5-5.0); LYMPH % 28.5 % (24.0-44.0); MEAN CORPUSCULAR HEMOGLOBIN 30.1 pg (27.0-33.0); MEAN CORPUSCULAR HGB CONC 33.7 g/dl (32.0-36.5); MEAN CORPUSCULAR VOLUME 89.5 fl (80.0-96.0); MONO # 0.4 10^3/uL (0.0-0.8); MONO % 8.9 % (2.0-8.0); NEUTROPHILS # 2.3 10^3/uL (1.5-8.5); NEUTROPHILS % 53.7 % (36.0-66.0); PLATELET COUNT, AUTOMATED 220 10^3/uL (150-450); RED BLOOD COUNT 4.65 10^6/uL (4.00-5.40); WHITE BLOOD COUNT 4.3 10^3/uL (4.0-10.0)
[2022-04-27 13:57] LABS: ALBUMIN 3.9 G/DL (3.2-5.2); ALKALINE PHOSPHATASE 63 U/L (46-116); ALT/SGPT 32 U/L (7.0-40); AST/SGOT 33 U/L (<34); BILIRUBIN,TOTAL 0.5 MG/DL (0.3-1.2); BLOOD UREA NITROGEN 12 MG/DL (9-23); CALCIUM LEVEL 9.4 MG/DL (8.5-10.1); CARBON DIOXIDE LEVEL 28 MMOL/L (20-31); CHLORIDE LEVEL 105 MMOL/L (98-107); CREATININE FOR GFR 0.91 MG/DL (0.55-1.30); GLOMERULAR FILTRATION RATE > 60.0 (>51); GLUCOSE, FASTING 81 MG/DL (60-100); POTASSIUM SERUM 4.7 MMOL/L (3.5-5.1); SODIUM LEVEL 140 MMOL/L (136-145); TOTAL PROTEIN 6.6 G/DL (5.7-8.2)
[2022-04-27 13:58] LABS: BILIRUBIN,DIRECT 0.1 MG/DL (<0.4); TOTAL 25(OH) VITAMIN D 36.2 NG/ML (20.0-100.0)
[2022-04-27 14:03] LABS: ERYTHROCYTE SEDIMENTATION RATE 2 mm/hr (0-30)
[2022-04-27 14:19] LABS: C REACTIVE PROTEIN QUANTITATIV < 0.40 MG/DL (<1.0)
== END ==
LOC: M WUC 08:40
PROVIDERS: ATTEND Internal Medicine
DX: M06.9 Rheumatoid arthritis, unspecified (principal); R53.82 Chronic fatigue, unspecified

== ENCOUNTER → 2022-07-05 | Outpatient (CLI) | payer OTHER | LOC: M WUC 12:18 | PROVIDERS: ATTEND Internal Medicine | DX: M77.10 Lateral epicondylitis, unspecified elbow (principal) ==

== ENCOUNTER → 2022-07-29 | Outpatient (CLI) | payer OTHER | LOC: M PLAIMG 10:23 | PROVIDERS: ATTEND Internal Medicine | DX: M77.10 Lateral epicondylitis, unspecified elbow (principal); S56.512A Strain of other extensor muscle, fascia and tendon at forearm level, left arm, initial encounter ==

== ENCOUNTER → 2022-08-06 | Outpatient (CLI) | payer OTHER ==
[2022-08-06 17:36] LABS: BASO # 0.1 10^3/uL (0.0-0.2); BASO % 1.4 % (0.0-1.0); EOS # 0.2 10^3/uL (0.0-0.5); EOS % 4.6 % (0.0-3.0); HEMATOCRIT 38.4 % (36.0-47.0); HEMOGLOBIN 13.2 g/dl (12.0-15.5); LYMPH # 1.5 10^3/uL (1.5-5.0); LYMPH % 30.1 % (24.0-44.0); MEAN CORPUSCULAR HEMOGLOBIN 30.4 pg (27.0-33.0); MEAN CORPUSCULAR HGB CONC 34.4 g/dl (32.0-36.5); MEAN CORPUSCULAR VOLUME 88.5 fl (80.0-96.0); MONO # 0.4 10^3/uL (0.0-0.8); MONO % 8.5 % (2.0-8.0); NEUTROPHILS # 2.8 10^3/uL (1.5-8.5); NEUTROPHILS % 55.2 % (36.0-66.0); PLATELET COUNT, AUTOMATED 189 10^3/uL (150-450); RED BLOOD COUNT 4.34 10^6/uL (4.00-5.40); WHITE BLOOD COUNT 5.1 10^3/uL (4.0-10.0)
[2022-08-06 17:59] LABS: C REACTIVE PROTEIN QUANTITATIV < 0.40 MG/DL (<1.0)
[2022-08-06 18:00] LABS: ALKALINE PHOSPHATASE 60 U/L (46-116); ALT/SGPT 28 U/L (7.0-40); AST/SGOT 24 U/L (<34); BILIRUBIN,DIRECT 0.1 MG/DL (<0.4); BILIRUBIN,TOTAL 0.4 MG/DL (0.3-1.2); BLOOD UREA NITROGEN 15 MG/DL (9-23); CALCIUM LEVEL 8.7 MG/DL (8.5-10.1); CARBON DIOXIDE LEVEL 30 MMOL/L (20-31); CHLORIDE LEVEL 105 MMOL/L (98-107); CREATININE FOR GFR 0.91 MG/DL (0.55-1.30); GLOMERULAR FILTRATION RATE > 60.0 (>51); GLUCOSE, FASTING 80 MG/DL (60-100); POTASSIUM SERUM 4.5 MMOL/L (3.5-5.1); SODIUM LEVEL 140 MMOL/L (136-145); TOTAL PROTEIN 6.3 G/DL (5.7-8.2)
[2022-08-06 18:24] LABS: ERYTHROCYTE SEDIMENTATION RATE 1 mm/hr (0-30)
== END ==
LOC: M LAB 15:54
PROVIDERS: ATTEND Internal Medicine
DX: M06.9 Rheumatoid arthritis, unspecified (principal)

== ENCOUNTER → 2022-08-16 | Outpatient (REF) | payer OTHER | LOC: M LAB REF 16:16 | PROVIDERS: ATTEND Internal Medicine | DX: D51.9 Vitamin B12 deficiency anemia, unspecified (principal) ==

== ENCOUNTER → 2022-11-18 | Outpatient (REF) | payer OTHER ==
[~2022-11-18] MED LIST changes: -HYDR200T3 PO; +HYDR200T46 PO
[2022-11-18 12:07] LABS: C REACTIVE PROTEIN QUANTITATIV < 0.40 MG/DL (<1.0)
[2022-11-18 12:09] LABS: ALBUMIN 4.1 G/DL (3.2-5.2); ALKALINE PHOSPHATASE 55 U/L (46-116); ALT/SGPT 22 U/L (7.0-40); AST/SGOT 23 U/L (<34); BILIRUBIN,DIRECT 0.2 MG/DL (<0.4); BILIRUBIN,TOTAL 0.7 MG/DL (0.3-1.2); BLOOD UREA NITROGEN 14 MG/DL (9-23); CARBON DIOXIDE LEVEL 28 MMOL/L (20-31); CHLORIDE LEVEL 107 MMOL/L (98-107); CREATININE FOR GFR 0.85 MG/DL (0.55-1.30); GLOMERULAR FILTRATION RATE > 60.0 (>51); GLUCOSE, FASTING 85 MG/DL (60-100); POTASSIUM SERUM 4.1 MMOL/L (3.5-5.1); SODIUM LEVEL 140 MMOL/L (136-145); TOTAL PROTEIN 6.4 G/DL (5.7-8.2)
== END ==
LOC: M LABWUC 11:14
PROVIDERS: ATTEND Internal Medicine
DX: M06.9 Rheumatoid arthritis, unspecified (principal)

== ENCOUNTER → 2023-03-25 | Outpatient (CLI) | payer OTHER ==
[2023-03-25 11:18] LABS: BASO # 0.1 10^3/uL (0.0-0.2); BASO % 2.1 % (0.0-1.0); EOS # 0.3 10^3/uL (0.0-0.5); EOS % 7.4 % (0.0-3.0); HEMATOCRIT 39.3 % (36.0-47.0); HEMOGLOBIN 13.6 g/dl (12.0-15.5); LYMPH # 1.1 10^3/uL (1.5-5.0); LYMPH % 26.5 % (24.0-44.0); MEAN CORPUSCULAR HEMOGLOBIN 30.7 pg (27.0-33.0); MEAN CORPUSCULAR HGB CONC 34.6 g/dl (32.0-36.5); MEAN CORPUSCULAR VOLUME 88.7 fl (80.0-96.0); MONO # 0.3 10^3/uL (0.0-0.8); MONO % 7.2 % (2.0-8.0); NEUTROPHILS # 2.4 10^3/uL (1.5-8.5); NEUTROPHILS % 56.6 % (36.0-66.0); PLATELET COUNT, AUTOMATED 206 10^3/uL (150-450); RED BLOOD COUNT 4.43 10^6/uL (4.00-5.40); WHITE BLOOD COUNT 4.2 10^3/uL (4.0-10.0)
[2023-03-25 11:47] LABS: ERYTHROCYTE SEDIMENTATION RATE < 1 mm/hr (0-30)
[2023-03-25 11:51] LABS: C REACTIVE PROTEIN QUANTITATIV < 0.40 MG/DL (<1.0)
[2023-03-25 11:52] LABS: ALBUMIN 4.1 G/DL (3.2-5.2); ALKALINE PHOSPHATASE 59 U/L (46-116); ALT/SGPT 22 U/L (7.0-40); AST/SGOT 26 U/L (<34); BILIRUBIN,DIRECT 0.1 MG/DL (<0.4); BILIRUBIN,TOTAL 0.4 MG/DL (0.3-1.2); BLOOD UREA NITROGEN 16 MG/DL (9-23); CALCIUM LEVEL 8.8 MG/DL (8.5-10.1); CARBON DIOXIDE LEVEL 30 MMOL/L (20-31); CHLORIDE LEVEL 104 MMOL/L (98-107); CREATININE FOR GFR 0.89 MG/DL (0.55-1.30); GLOMERULAR FILTRATION RATE > 60.0 (>51); GLUCOSE, FASTING 83 MG/DL (60-100); POTASSIUM SERUM 4.5 MMOL/L (3.5-5.1); SODIUM LEVEL 140 MMOL/L (136-145); TOTAL PROTEIN 6.5 G/DL (5.7-8.2)
== END ==
LOC: M WUC 08:32
PROVIDERS: ATTEND Internal Medicine
DX: M06.9 Rheumatoid arthritis, unspecified (principal)

== ENCOUNTER → 2023-06-21 | Outpatient (CLI) | payer OTHER ==
[2023-06-21 10:35] LABS: BASO # 0.1 10^3/uL (0.0-0.2); BASO % 1.8 % (0.0-1.0); EOS # 0.3 10^3/uL (0.0-0.5); EOS % 7.5 % (0.0-3.0); HEMATOCRIT 36.9 % (36.0-47.0); HEMOGLOBIN 12.8 g/dl (12.0-15.5); LYMPH # 1.2 10^3/uL (1.5-5.0); MEAN CORPUSCULAR HEMOGLOBIN 31.1 pg (27.0-33.0); MEAN CORPUSCULAR HGB CONC 34.7 g/dl (32.0-36.5); MEAN CORPUSCULAR VOLUME 89.8 fl (80.0-96.0); MONO # 0.4 10^3/uL (0.0-0.8); MONO % 9.3 % (2.0-8.0); NEUTROPHILS % 51.1 % (36.0-66.0); PLATELET COUNT, AUTOMATED 184 10^3/uL (150-450); RED BLOOD COUNT 4.11 10^6/uL (4.00-5.40); WHITE BLOOD COUNT 3.9 10^3/uL (4.0-10.0)
[2023-06-21 10:40] LABS: ERYTHROCYTE SEDIMENTATION RATE < 1 mm/hr (0-30)
[2023-06-21 11:11] LABS: C REACTIVE PROTEIN QUANTITATIV < 0.40 MG/DL (<1.0)
[2023-06-21 11:21] LABS: ALBUMIN 3.9 G/DL (3.2-5.2); ALKALINE PHOSPHATASE 53 U/L (46-116); ALT/SGPT 23 U/L (7.0-40); AST/SGOT 24 U/L (<34); BILIRUBIN,DIRECT 0.1 MG/DL (<0.4); BILIRUBIN,TOTAL 0.4 MG/DL (0.3-1.2); BLOOD UREA NITROGEN 17 MG/DL (9-23); CALCIUM LEVEL 8.6 MG/DL (8.5-10.1); CARBON DIOXIDE LEVEL 27 MMOL/L (20-31); CHLORIDE LEVEL 109 MMOL/L (98-107); CREATININE FOR GFR 0.87 MG/DL (0.55-1.30); GLOMERULAR FILTRATION RATE > 60.0 (>51); GLUCOSE, FASTING 85 MG/DL (60-100); POTASSIUM SERUM 4.4 MMOL/L (3.5-5.1); SODIUM LEVEL 141 MMOL/L (136-145); TOTAL PROTEIN 6.2 G/DL (5.7-8.2)
== END ==
LOC: M WUC 08:17
PROVIDERS: ATTEND Internal Medicine
DX: M06.9 Rheumatoid arthritis, unspecified (principal)

== ENCOUNTER → 2023-07-28 | Outpatient (CLI) | payer OTHER | LOC: M WUC 13:59 | PROVIDERS: ATTEND Internal Medicine | DX: M06.9 Rheumatoid arthritis, unspecified (principal); Z79.899 Other long term (current) drug therapy ==

== ENCOUNTER → 2023-09-30 | Outpatient (CLI) | payer OTHER | LOC: M WUC 13:06 | PROVIDERS: ATTEND Physician Assistant | DX: M25.521 Pain in right elbow (principal) ==

== ENCOUNTER → 2023-09-30 | Outpatient (CLI) | payer OTHER ==
[2023-09-30 16:32] LABS: BASO # 0.1 10^3/uL (0.0-0.2); BASO % 1.4 % (0.0-1.0); EOS # 0.3 10^3/uL (0.0-0.5); EOS % 5.1 % (0.0-3.0); HEMATOCRIT 39.3 % (36.0-47.0); HEMOGLOBIN 13.4 g/dl (12.0-15.5); LYMPH # 1.4 10^3/uL (1.5-5.0); LYMPH % 28.3 % (24.0-44.0); MEAN CORPUSCULAR HEMOGLOBIN 30.7 pg (27.0-33.0); MEAN CORPUSCULAR HGB CONC 34.1 g/dl (32.0-36.5); MEAN CORPUSCULAR VOLUME 90.1 fl (80.0-96.0); MONO # 0.5 10^3/uL (0.0-0.8); MONO % 8.9 % (2.0-8.0); NEUTROPHILS # 2.8 10^3/uL (1.5-8.5); NEUTROPHILS % 56.1 % (36.0-66.0); PLATELET COUNT, AUTOMATED 200 10^3/uL (150-450); RED BLOOD COUNT 4.36 10^6/uL (4.00-5.40); WHITE BLOOD COUNT 5.1 10^3/uL (4.0-10.0)
[2023-09-30 16:38] LABS: C REACTIVE PROTEIN QUANTITATIV < 0.40 MG/DL (<1.0)
[2023-09-30 16:39] LABS: ALBUMIN 4.5 G/DL (3.2-5.2); ALKALINE PHOSPHATASE 57 U/L (46-116); ALT/SGPT 29 U/L (7.0-40); AST/SGOT 31 U/L (<34); BILIRUBIN,DIRECT 0.2 MG/DL (<0.4); BILIRUBIN,TOTAL 0.7 MG/DL (0.3-1.2); BLOOD UREA NITROGEN 14 MG/DL (9-23); CALCIUM LEVEL 9.3 MG/DL (8.5-10.1); CARBON DIOXIDE LEVEL 27 MMOL/L (20-31); CHLORIDE LEVEL 106 MMOL/L (98-107); CREATININE FOR GFR 0.83 MG/DL (0.55-1.30); GLOMERULAR FILTRATION RATE > 60.0 (>51); GLUCOSE, FASTING 79 MG/DL (60-100); POTASSIUM SERUM 4.2 MMOL/L (3.5-5.1); SODIUM LEVEL 140 MMOL/L (136-145); TOTAL PROTEIN 6.8 G/DL (5.7-8.2)
[2023-09-30 17:43] LABS: ERYTHROCYTE SEDIMENTATION RATE < 1 mm/hr (0-30)
== END ==
LOC: M WUC 12:56
PROVIDERS: ATTEND Internal Medicine
DX: M06.9 Rheumatoid arthritis, unspecified (principal)

== ENCOUNTER → 2023-11-21 | Outpatient (CLI) | payer OTHER ==
[~2023-11-21] MED LIST changes: +PROHANCE 279.3MG/ML 15ML VIAL As Ordered ONE
== END ==
LOC: M RAD 08:32
PROVIDERS: ATTEND Internal Medicine
DX: Z80.3 Family history of malignant neoplasm of breast (principal)
CPT/HCPCS: A9576; C8908

== ENCOUNTER → 2023-12-19 | Outpatient (CLI) | payer OTHER ==
[~2023-12-19] MED LIST changes: -PROHANCE 279.3MG/ML 15ML VIAL As Ordered ONE
[2023-12-19 10:16] LABS: BASO # 0.1 10^3/uL (0.0-0.2); EOS # 0.2 10^3/uL (0.0-0.5); EOS % 5.1 % (0.0-3.0); HEMATOCRIT 37.3 % (36.0-47.0); LYMPH # 1.2 10^3/uL (1.5-5.0); LYMPH % 30.4 % (24.0-44.0); MEAN CORPUSCULAR HGB CONC 34.9 g/dl (32.0-36.5); MONO # 0.3 10^3/uL (0.0-0.8); MONO % 7.7 % (2.0-8.0); NEUTROPHILS # 2.1 10^3/uL (1.5-8.5); NEUTROPHILS % 54.5 % (36.0-66.0); PLATELET COUNT, AUTOMATED 186 10^3/uL (150-450); RED BLOOD COUNT 4.19 10^6/uL (4.00-5.40); WHITE BLOOD COUNT 3.9 10^3/uL (4.0-10.0)
[2023-12-19 10:43] LABS: ERYTHROCYTE SEDIMENTATION RATE < 1 mm/hr (0-30)
[2023-12-19 10:46] LABS: C REACTIVE PROTEIN QUANTITATIV < 0.40 MG/DL (<1.0)
[2023-12-19 10:48] LABS: ALBUMIN 4.2 G/DL (3.2-5.2); ALKALINE PHOSPHATASE 53 U/L (46-116); ALT/SGPT 23 U/L (7.0-40); AST/SGOT 23 U/L (<34); BILIRUBIN,DIRECT 0.1 MG/DL (<0.4); BILIRUBIN,TOTAL 0.5 MG/DL (0.3-1.2); BLOOD UREA NITROGEN 16 MG/DL (9-23); CALCIUM LEVEL 8.9 MG/DL (8.5-10.1); CARBON DIOXIDE LEVEL 28 MMOL/L (20-31); CHLORIDE LEVEL 107 MMOL/L (98-107); CREATININE FOR GFR 0.84 MG/DL (0.55-1.30); GLOMERULAR FILTRATION RATE > 60.0 (>51); GLUCOSE, FASTING 85 MG/DL (60-100); POTASSIUM SERUM 4.3 MMOL/L (3.5-5.1); SODIUM LEVEL 139 MMOL/L (136-145); TOTAL PROTEIN 6.4 G/DL (5.7-8.2)
== END ==
LOC: M WUC 08:40
PROVIDERS: ATTEND Internal Medicine
DX: M06.9 Rheumatoid arthritis, unspecified (principal)

== ENCOUNTER → 2024-03-20 | Outpatient (CLI) | payer OTHER ==
[2024-03-20 16:33] LABS: BASO # 0.1 10^3/uL (0.0-0.2); BASO % 1.4 % (0.0-1.0); EOS # 0.3 10^3/uL (0.0-0.5); EOS % 6.1 % (0.0-3.0); HEMATOCRIT 38.9 % (36.0-47.0); HEMOGLOBIN 13.2 g/dl (12.0-15.5); LYMPH # 1.6 10^3/uL (1.5-5.0); MEAN CORPUSCULAR HEMOGLOBIN 30.7 pg (27.0-33.0); MEAN CORPUSCULAR HGB CONC 33.9 g/dl (32.0-36.5); MEAN CORPUSCULAR VOLUME 90.5 fl (80.0-96.0); MONO # 0.4 10^3/uL (0.0-0.8); MONO % 7.3 % (2.0-8.0); NEUTROPHILS # 2.7 10^3/uL (1.5-8.5); PLATELET COUNT, AUTOMATED 190 10^3/uL (150-450); WHITE BLOOD COUNT 5.1 10^3/uL (4.0-10.0)
[2024-03-20 16:35] LABS: C REACTIVE PROTEIN QUANTITATIV < 0.40 MG/DL (<1.0)
[2024-03-20 16:37] LABS: ALBUMIN 4.2 G/DL (3.2-5.2); ALKALINE PHOSPHATASE 53 U/L (35-104); ALT/SGPT 24 U/L (7.0-40); AST/SGOT 24 U/L (<34); BILIRUBIN,DIRECT 0.1 MG/DL (<0.4); BILIRUBIN,TOTAL 0.5 MG/DL (0.3-1.2); BLOOD UREA NITROGEN 15 MG/DL (9-23); CALCIUM LEVEL 9.3 MG/DL (8.5-10.1); CARBON DIOXIDE LEVEL 27 MMOL/L (20-31); CHLORIDE LEVEL 106 MMOL/L (98-107); CREATININE FOR GFR 0.76 MG/DL (0.55-1.30); ERYTHROCYTE SEDIMENTATION RATE < 1 mm/hr (0-30); GLOMERULAR FILTRATION RATE > 60.0 (>51); GLUCOSE, FASTING 80 MG/DL (60-100); POTASSIUM SERUM 3.9 MMOL/L (3.5-5.1); SODIUM LEVEL 139 MMOL/L (136-145); TOTAL PROTEIN 6.9 G/DL (5.7-8.2)
== END ==
LOC: M WUC 12:32
PROVIDERS: ATTEND Internal Medicine
DX: M06.9 Rheumatoid arthritis, unspecified (principal)

== ENCOUNTER → 2024-05-17 | Outpatient (REF) | payer OTHER | LOC: M SFHCRHEU 11:08 | PROVIDERS: ATTEND Internal Medicine | DX: M06.9 Rheumatoid arthritis, unspecified (principal) ==

== ENCOUNTER → 2024-06-20 | Outpatient (CLI) | payer OTHER ==
[2024-06-20 16:55] LABS: ALBUMIN 4.4 G/DL (3.2-5.2); ALKALINE PHOSPHATASE 55 U/L (35-104); ALT/SGPT 29 U/L (7.0-40); AST/SGOT 31 U/L (<34); BASO # 0.1 10^3/uL (0.0-0.2); BASO % 1.6 % (0.0-1.0); BILIRUBIN,DIRECT < 0.1 MG/DL (<0.4); BILIRUBIN,TOTAL 0.5 MG/DL (0.3-1.2); BLOOD UREA NITROGEN 17 MG/DL (9-23); C REACTIVE PROTEIN QUANTITATIV < 0.50 MG/DL (<1.0); CALCIUM LEVEL 9.7 MG/DL (8.5-10.1); CARBON DIOXIDE LEVEL 28 MMOL/L (20-31); CHLORIDE LEVEL 104 MMOL/L (98-107); CREATININE FOR GFR 0.77 MG/DL (0.55-1.30); EOS # 0.2 10^3/uL (0.0-0.5); EOS % 4.2 % (0.0-3.0); GLOMERULAR FILTRATION RATE > 60.0 (>51); GLUCOSE, FASTING 84 MG/DL (60-100); HEMATOCRIT 40.4 % (36.0-47.0); HEMOGLOBIN 13.8 g/dl (12.0-15.5); LYMPH # 1.5 10^3/uL (1.5-5.0); LYMPH % 27.6 % (24.0-44.0); MEAN CORPUSCULAR HEMOGLOBIN 30.4 pg (27.0-33.0); MEAN CORPUSCULAR HGB CONC 34.2 g/dl (32.0-36.5); MONO # 0.4 10^3/uL (0.0-0.8); MONO % 7.5 % (2.0-8.0); NEUTROPHILS # 3.2 10^3/uL (1.5-8.5); NEUTROPHILS % 58.4 % (36.0-66.0); PLATELET COUNT, AUTOMATED 208 10^3/uL (150-450); POTASSIUM SERUM 4.5 MMOL/L (3.5-5.1); RED BLOOD COUNT 4.54 10^6/uL (4.00-5.40); SODIUM LEVEL 142 MMOL/L (136-145); TOTAL PROTEIN 7.2 G/DL (5.7-8.2); WHITE BLOOD COUNT 5.5 10^3/uL (4.0-10.0)
[2024-06-20 17:12] LABS: ERYTHROCYTE SEDIMENTATION RATE < 1 mm/hr (0-30)
== END ==
LOC: M WUC 14:09
PROVIDERS: ATTEND Internal Medicine
DX: M06.9 Rheumatoid arthritis, unspecified (principal)

== ENCOUNTER → 2024-07-14 | Outpatient (CLI) | payer OTHER | LOC: M RAD 08:16 | PROVIDERS: ATTEND Internal Medicine | DX: M85.441 Solitary bone cyst, right hand (principal); M25.441 Effusion, right hand; M25.442 Effusion, left hand; M79.641 Pain in right hand; M79.642 Pain in left hand ==

== ENCOUNTER → 2024-07-31 | Outpatient (CLI) | payer OTHER ==
[2024-07-31 16:32] LABS: MONO REFLEX EBV COMP NEGATIVE (NEGATIVE)
== END ==
LOC: M WUC 12:57
PROVIDERS: ATTEND Nurse Practitioner Family
DX: R05.9 Cough, unspecified (principal); R53.83 Other fatigue

== ENCOUNTER → 2024-09-20 | Outpatient (CLI) | payer OTHER | LOC: M PLAIMG 10:27 | PROVIDERS: ATTEND Internal Medicine | DX: R06.02 Shortness of breath (principal); R05.3 Chronic cough; N28.1 Cyst of kidney, acquired ==